=== PATIENT | male | born 1990 | race Two or more races ===

== ENCOUNTER 2019-03-08 12:14 | Emergency (ER) | payer MEDICAID, OTHER ==
[~2019-03-08] VITALS: Ht 177.8 cm; Wt 72.6 kg
[~2019-03-08 12:14] MED LIST: INSU70IN9 SC
[2019-03-08 12:41] VITALS: BP 143/88
[2019-03-08 13:27] LABS: Urine Bacteria NONE SEEN /hpf (None Seen); Urine Blood Negative /uL (Negative); Urine Specific Gravity 1.033 (1.001-1.035); Urine WBC 2 /hpf (0 - 3)
[2019-03-08] MEDS ORDERED: SODIUM CHLORIDE 0.9% 1,000 ML IV ONE (16:45)
== END 2019-03-08 17:43 | disposition home or self-care (01) ==
LOC: ER 12:14
DX: E10.10 Type 1 diabetes mellitus with ketoacidosis without coma (principal); Z79.4 Long term (current) use of insulin
CPT/HCPCS: 36600; 81001; 82805

== ENCOUNTER 2019-08-05 21:00 | Emergency (ER) | payer MEDICAID ==
[~2019-08-05] VITALS: Ht 177.8 cm; Wt 68.0 kg
[2019-08-05] MEDS ORDERED: AZITHROMYCIN 250 MG TAB PO ONE (22:30)
[2019-08-05] MEDS ORDERED: cefTRIAXone SOD 1,000 MG VL IM ONE (22:30)
[2019-08-05] MEDS ORDERED: metroNIDAZOLE 500 MG TAB PO ONE (22:30)
[2019-08-05] MEDS ORDERED: LIDOCAINE 1% HCL (LOCAL ANESTH.) INJ 20ML MDV ID ONE (22:48)
[2019-08-05 23:01] VITALS: BP 133/94
[2019-08-05 23:37] LABS: Urine Bacteria FEW /hpf (None Seen); Urine Blood Negative /uL (Negative); Urine Budding Yeast OCCASIONAL /hpf (None Seen); Urine Specific Gravity 1.039 (1.001-1.035); Urine WBC 38 /hpf (0 - 3)
== END 2019-08-05 23:41 | disposition home or self-care (01) ==
LOC: ER 21:03
DX: A64 Unspecified sexually transmitted disease (principal); E11.9 Type 2 diabetes mellitus without complications; Z70.8 Other sex counseling; Z79.4 Long term (current) use of insulin; Z79.899 Other long term (current) drug therapy
CPT/HCPCS: 81001; 96372; 99284; J0696; J2001

== ENCOUNTER 2020-03-08 11:26 | Emergency (ER) | payer MEDICAID ==
[~2020-03-08] VITALS: Ht 177.8 cm; Wt 68.0 kg
[2020-03-08 11:49] VITALS: BP 145/92
== END 2020-03-08 13:49 | disposition home or self-care (01) ==
LOC: ER 11:26
DX: S56.911A Strain of unspecified muscles, fascia and tendons at forearm level, right arm, initial encounter (principal); B02.9 Zoster without complications; E11.9 Type 2 diabetes mellitus without complications; F17.210 Nicotine dependence, cigarettes, uncomplicated; Z79.4 Long term (current) use of insulin; X50.0XXA Overexertion from strenuous movement or load, initial encounter; Y93.89 Activity, other specified; Y92.89 Other specified places as the place of occurrence of the external cause; Y99.0 Civilian activity done for income or pay
CPT/HCPCS: 73090

== ENCOUNTER 2020-08-04 10:06 | Inpatient (IN) | payer MEDICAID ==
[~2020-08-04] VITALS: Ht 177.8 cm; Wt 91.6 kg
[2020-08-04] MEDS ORDERED: SODIUM CHLORIDE 0.9% 1,000 ML IV ONE ×2 (11:00)
[2020-08-04] MEDS ORDERED: InsuLIN REG 1unit/0.01ml Soln (100units/ml) IV ONE (11:00)
[2020-08-04] MEDS ORDERED: ASPirin 81 mg TAB PO ONE (11:00)
[2020-08-04 11:11] LABS: Basophils # (auto) 0.1 10 ^3/uL (0-0.2); Basophils % (auto) 0.8 % (0.0-2.0); Eosinophils # (auto) 0.2 10 ^3/uL (0-0.8); Eosinophils % (auto) 1.9 % (0.0-7.0); Hematocrit 43.2 % (41.0-53.0); Hemoglobin 14.5 g/dL (13.5-17.5); Lymphocytes % (auto) 18.7 % (10.0-50.0); Mean Corpuscular Hemoglobin 33.6 pg (28.0-32.0); Mean Corpuscular Hgb Conc. 33.6 g/dL (32.0-36.0); Mean Corpuscular Volume 100.2 fL (80.0-100.0); Monocytes # (auto) 0.9 10 ^3/uL (0-1.3); Monocytes % (auto) 8.1 % (0.0-12.0); Neutrophils # (auto) 7.7 10 ^3/uL (1.6-8.6); Neutrophils % (auto) 70.5 % (37.0-80.0); Nucleated Red Blood Cells % 0.1 %; Platelet Count (auto) 405 10^3/uL (140-450); Red Blood Cells 4.31 10^6/uL (4.5-5.90); Red Cell Distribution Width 13.5 % (11.8-14.3); White Blood Cell 10.9 10^3/uL (4.4-10.8)
[2020-08-04 11:28] LABS: Albumin 2.3 g/dL (3.4-5.0); Calcium 8.2 mg/dL (8.5-10.1); Potassium 4.3 mmol/L (3.5-5.1)
[2020-08-04 11:37] LABS: BUN/Creatinine Ratio 17.3; Bilirubin, Total 0.3 mg/dL (0.2-1.0); Total Protein 6.7 g/dL (6.4-8.2)
[2020-08-04 14:15] LABS: Urine Bacteria FEW /hpf (None Seen); Urine Blood 3+ /uL (Negative); Urine Budding Yeast OCCASIONAL /hpf (None Seen); Urine Specific Gravity 1.027 (1.001-1.035); Urine WBC 10 /hpf (0 - 3)
[2020-08-04] MEDS ORDERED: MORPHINE SULF INJ 2 MG/ML SYRINGE 1ML IV PRN (15:00)
[2020-08-04] MEDS ORDERED: NITROGLYCERIN 0.4 MG SL TAB SL PRN (15:00)
[2020-08-04] MEDS ORDERED: DexAMETHasone SOD PHOS 10MG/1ML VIAL INJ IV ONE (15:30)
[2020-08-04] MEDS ORDERED: ALBUTEROL SULF HFA 90MCG INH 200DOSE IN PRN (15:30)
[2020-08-04] MEDS ORDERED: traMADol HCL 50 MG TAB PO PRN (15:45)
[2020-08-04] MEDS ORDERED: THIAMINE 100mg/ml INJ (200mg/2ml VIAL) IV ONE (15:45)
[2020-08-04] MEDS ORDERED: ACETAMINOPHEN 500 MG TAB PO PRN (15:45)
[2020-08-04] MEDS ORDERED: ZOLPIDEM TARTRATE 5 MG TAB PO PRN (15:45)
[2020-08-04] MEDS ORDERED: INSULIN LANTUS (GLARGINE) 1 /0.01ml (100units/ml) SC ONE (15:45)
[2020-08-04] MEDS ORDERED: DEXTROSE (50%) 50ML SYRG IV PRN (15:45)
[2020-08-04] MEDS ORDERED: ONDANSETRON HCL 4 MG/2 ML VIAL IV PRN (15:45)
[2020-08-04] MEDS ORDERED: chlordiazePOXIDE HCL 25 MG CAP PO PRN (15:45)
[2020-08-04] MEDS: ACCU-CHEK COMFORT CURVE STRIP VI SCH ×2 (16:18→21:05)
[2020-08-04] MEDS: InsuLIN REG 1unit/0.01ml Soln (100units/ml) SC SCH ×2 (16:24→21:04)
[2020-08-04] MEDS: levoFLOXacin 500MG 100 ML IV SCH (16:35)
[2020-08-04] MEDS: chlordiazePOXIDE HCL 5 MG CAP PO SCH (18:52)
[2020-08-04] MEDS: THIAMINE IV SCH (21:22)
[2020-08-04] MEDS: SODIUM CHL 0.9% IV SCH (21:22)
[2020-08-04] MEDS: CLINDAMYCIN 600MG IV 50 ML IV SCH (21:23)
[2020-08-04] MEDS: ENOXAPARIN SOD 40 MG/0.4 ML SYRINGE SC SCH (21:23)
[2020-08-04 21:30] VITALS: BP 156/95
[2020-08-04] MEDS ORDERED: INSDRIP SC (21:57)
[2020-08-04] MEDS ORDERED: INSLANTI SC (21:57)
[2020-08-04 22:00] VITALS: BP 156/95
[2020-08-04] MEDS ORDERED: BUDESONIDE (INHALATION) 180 MCG IH IN SCH (22:00)
[2020-08-04] MEDS ORDERED: INFLUENZA QUAD 2020-2021 0.5 ML SYRG IM ONE (22:00)
[2020-08-04] MEDS ORDERED: PNEUMOCOCCAL VACC POLYS 25 MCG/0.5 ML VIAL IM ONE (22:00)
[2020-08-05] VITALS (7 sets, daily range): BP systolic 154–166; BP diastolic 85–100
[2020-08-05] MEDS: InsuLIN REG 1unit/0.01ml Soln (100units/ml) SC SCH ×6 (00:06→20:41)
[2020-08-05] MEDS: chlordiazePOXIDE HCL 5 MG CAP PO SCH ×4 (00:08→17:31)
[2020-08-05] MEDS: ACCU-CHEK COMFORT CURVE STRIP VI SCH ×6 (00:08→20:43)
[2020-08-05 05:48] LABS: Basophils # (auto) 0 10 ^3/uL (0-0.2); Basophils % (auto) 0.4 % (0.0-2.0); Eosinophils # (auto) 0 10 ^3/uL (0-0.8); Hematocrit 40.7 % (41.0-53.0); Hemoglobin 14.2 g/dL (13.5-17.5); Lymphocytes # (auto) 1.2 10 ^3/uL (0.4-5.4); Mean Corpuscular Hemoglobin 34.1 pg (28.0-32.0); Mean Corpuscular Volume 97.6 fL (80.0-100.0); Monocytes # (auto) 0.2 10 ^3/uL (0-1.3); Neutrophils # (auto) 7.9 10 ^3/uL (1.6-8.6); Neutrophils % (auto) 84.6 % (37.0-80.0); Nucleated Red Blood Cells % 0.1 %; Platelet Count (auto) 404 10^3/uL (140-450); Red Blood Cells 4.17 10^6/uL (4.5-5.90); Red Cell Distribution Width 13.1 % (11.8-14.3); White Blood Cell 9.3 10^3/uL (4.4-10.8)
[2020-08-05] MEDS: CLINDAMYCIN 600MG IV 50 ML IV SCH ×3 (06:20→22:19)
[2020-08-05 07:32] LABS: Anion Gap 7 (5-15); Blood Urea Nitrogen 27 mg/dL (7-18); Calcium 7.8 mg/dL (8.5-10.1); Carbon Dioxide 21 mmol/L (21-32); Chloride 112 mmol/L (98-107); Glucose 152 mg/dL (74-106); Potassium 4.5 mmol/L (3.5-5.1); Sodium 140 mmol/L (136-145)
[2020-08-05 07:37] LABS: Alanine Aminotransferase 69 U/L (16-61); Alkaline Phosphatase 120 U/L (45-117); Aspartate Aminotransferase 49 U/L (15-37); BUN/Creatinine Ratio 26.5; Bilirubin, Total 0.2 mg/dL (0.2-1.0); GFR African American 112 mL/min; GFR Non-African American 92 mL/min; Total Protein 6.3 g/dL (6.4-8.2)
[2020-08-05] MEDS ORDERED: THIAMINE 100mg/ml INJ (200mg/2ml VIAL) IV SCH (10:00)
[2020-08-05] MEDS: CHOLECALCIFEROL (VITD3) 2,000 UNIT CAP/TAB PO SCH (10:00)
[2020-08-05] MEDS: DexAMETHasone SOD PHOS 10MG/1ML VIAL INJ IV SCH (10:00)
[2020-08-05] MEDS: ZINC SULFATE 220mg CAP or TAB PO SCH (10:00)
[2020-08-05] MEDS: ASCORBIC ACID 1,000 MG TAB PO SCH (10:00)
[2020-08-05] MEDS: levoFLOXacin 500MG 100 ML IV SCH (10:26)
[2020-08-05] MEDS: THIAMINE IV SCH (10:26)
[2020-08-05] MEDS: SODIUM CHL 0.9% IV SCH (10:26)
[2020-08-05] MEDS: ENOXAPARIN SOD 40 MG/0.4 ML SYRINGE SC SCH ×2 (10:26→22:20)
[2020-08-05] MEDS: FLUCONAZOLE 200MG/100ML 100 ML IV SCH (10:27)
[2020-08-05] MEDS: METOPROLOL TARTRATE 50 MG TAB PO SCH ×2 (10:27→22:19)
[2020-08-05] MEDS ORDERED: INSULIN LANTUS (GLARGINE) 1 /0.01ml (100units/ml) SC SCH (22:00)
[2020-08-06] MEDS: InsuLIN REG 1unit/0.01ml Soln (100units/ml) SC SCH ×4 (00:39→12:02)
[2020-08-06] MEDS: ACCU-CHEK COMFORT CURVE STRIP VI SCH ×4 (00:40→12:01)
[2020-08-06 04:48] VITALS: BP 136/59
[2020-08-06] MEDS: chlordiazePOXIDE HCL 5 MG CAP PO SCH ×3 (06:00→12:00)
[2020-08-06] MEDS: CLINDAMYCIN 600MG IV 50 ML IV SCH ×2 (06:52→14:00)
[2020-08-06 08:00] VITALS: BP 160/98
[2020-08-06 09:00] VITALS: BP 160/98
[2020-08-06] MEDS: ZINC SULFATE 220mg CAP or TAB PO SCH (09:52)
[2020-08-06] MEDS: DexAMETHasone SOD PHOS 10MG/1ML VIAL INJ IV SCH (09:52)
[2020-08-06] MEDS: ASCORBIC ACID 1,000 MG TAB PO SCH (09:52)
[2020-08-06] MEDS: CHOLECALCIFEROL (VITD3) 2,000 UNIT CAP/TAB PO SCH (09:52)
[2020-08-06] MEDS: levoFLOXacin 500MG 100 ML IV SCH (09:53)
[2020-08-06] MEDS: THIAMINE IV SCH (09:53)
[2020-08-06] MEDS: SODIUM CHL 0.9% IV SCH (09:53)
[2020-08-06] MEDS: FLUCONAZOLE 200MG/100ML 100 ML IV SCH (09:53)
[2020-08-06] MEDS: METOPROLOL TARTRATE 50 MG TAB PO SCH (09:54)
[2020-08-06] MEDS: ENOXAPARIN SOD 40 MG/0.4 ML SYRINGE SC SCH (09:55)
[2020-08-06] MEDS ORDERED: amLODIPine BESYLATE 5 MG TAB PO ONE (11:45)
[2020-08-06 13:00] VITALS: BP 159/101
[2020-08-07] MEDS ORDERED: amLODIPine BESYLATE 5 MG TAB PO SCH (10:00)
== END 2020-08-06 14:48 | disposition left against medical advice (07) | DRG 137 ==
LOC: ER 10:06 → TELE 14:57 → TELE-CENTR 19:41
PROVIDERS: ADMIT Internal Medicine; ATTEND Family Medicine
DX: J69.0 Pneumonitis due to inhalation of food and vomit (principal); J96.01 Acute respiratory failure with hypoxia; E43 Unspecified severe protein-calorie malnutrition; R64 Cachexia; J91.8 Pleural effusion in other conditions classified elsewhere; N17.9 Acute kidney failure, unspecified; Z20.822 Contact with and (suspected) exposure to COVID-19; I10 Essential (primary) hypertension; N39.0 Urinary tract infection, site not specified; E10.65 Type 1 diabetes mellitus with hyperglycemia; R21 Rash and other nonspecific skin eruption; R60.0 Localized edema; F12.90 Cannabis use, unspecified, uncomplicated; F17.210 Nicotine dependence, cigarettes, uncomplicated; Z53.29 Procedure and treatment not carried out because of patient's decision for other reasons; F15.90 Other stimulant use, unspecified, uncomplicated; F14.90 Cocaine use, unspecified, uncomplicated; F19.10 Other psychoactive substance abuse, uncomplicated; D72.829 Elevated white blood cell count, unspecified; I25.10 Atherosclerotic heart disease of native coronary artery without angina pectoris; Z79.4 Long term (current) use of insulin
CPT/HCPCS: 36415; 71045; 80053; 81001; 82010; 82962; 83036; 83880; 84484; 85025; 87426; 93005; 93306; 93970; 96361; 96374; 96375; G0378; J1100; J1450; J1815; J1956; J3490

== ENCOUNTER 2024-01-05 15:14 | Emergency (ER) | payer MEDICAID ==
[~2024-01-05] VITALS: Ht 177.8 cm; Wt 75.8 kg
[~2024-01-05 15:14] MED LIST changes: +INSDRIP SC; +INSLANTI SC; -INSU70IN9 SC
[2024-01-05] MEDS ORDERED: IBU600T PO (17:45)
[2024-01-05 18:10] VITALS: BP 138/90; PULSE 94; RESP 20; TEMP 99; O2SAT 97
== END 2024-01-05 18:12 | disposition home or self-care (01) ==
LOC: ER 15:14
DX: J06.9 Acute upper respiratory infection, unspecified (principal); R07.89 Other chest pain; F17.290 Nicotine dependence, other tobacco product, uncomplicated; E11.9 Type 2 diabetes mellitus without complications; F10.90 Alcohol use, unspecified, uncomplicated; Y90.0 Blood alcohol level of less than 20 mg/100 ml
CPT/HCPCS: 71045